=== PATIENT | male | born 1965 | race Caucasian/White ===

== ENCOUNTER 2024-01-22 21:11 | Emergency (ER) | payer SELFPAY ==
[2024-01-22] VITALS (15 sets, daily range): BP systolic 106–152; BP diastolic 73–85; PULSE 98–117; TEMP 36.4; O2SAT 89–97; BMI 35.0
--- NOTE | 2024-01-22 21:34 | ECG_ITS ---
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
--- NOTE | 2024-01-22 21:40 | ED.GENADUL1 ---
HPI HPI - General Adult General Chief complaint: Recheck/Abnormal Lab/Rx Stated complaint: POSS HIGH SUGAR-DIABETIC Time Seen by Provider: 01/22/24 21:19 Source: patient Mode of arrival: walk-in Limitations: no limitations History of Present Illness HPI narrative: This 58-year-old male with a history of type 2 diabetes who is on Farxiga and metformin presents for evaluation of 1 week of feeling dizzy with polyuria and polydipsia. He has some degree of blurred vision. He denies any chest pain or shortness of breath. He has not had much of an appetite. He has not had a fever or cough. He does not check his sugars. He denies any severe weight loss but states his pants do feel like they are may be fitting more loosely. He also has a history of hypertension and high cholesterol. He maintains compliance with his medications. He states that earlier in the week his tongue looked white and dry so he has been drinking a lot of water. Related Data Home Medications ?Medication ?Instructions ?Recorded ?Confirmed amlodipine 5 mg tablet 5 mg PO DAILY 01/22/24 01/22/24 dapagliflozin propanediol 10 mg 10 mg PO DAILY 01/22/24 01/22/24 tablet lisinopril 40 mg tablet 40 mg PO DAILY 01/22/24 01/22/24 metformin 1,000 mg tablet 500 mg PO BID 01/22/24 01/22/24 rosuvastatin 40 mg tablet 40 mg PO DAILY 01/22/24 01/22/24 Allergies Allergy/AdvReac Type Severity Reaction Status Date / Time No Known Drug Allergies Allergy Verified 01/22/24 21:24 Opioid HPI Opioid Management Most Recent Opioid Data: No Data to Display Review of Systems ROS Status of ROS 10 or more systems reviewed and unremarkable except as noted in history and below [facility] Medical History (Updated 01/22/24 @ 22:51 by Zofia Wiley MD) Cleft palate and cleft lip ?Q37.9 - Unspecified cleft palate with unilateral cleft lip (ICD-10) Diabetes ?E11.9 - Type 2 diabetes mellitus without complications (ICD-10) Hypertension ?I10 - Essential (primary) hypertension (ICD-10) High cholesterol ?E78.00 - Pure hypercholesterolemia, unspecified (ICD-10) Surgical History (Updated 01/22/24 @ 21:29 by Brandie Golden) H/O bone graft ?Z98.890 - Other specified postprocedural states (ICD-10) History of placement of ear tubes ?Z96.22 - Myringotomy tube(s) status (ICD-10) Social History Little interest or pleasure in doing things: not at all Feeling down, depressed, or hopeless: not at all Exam Narrative Exam Narrative: Vital signs and Nursing Notes reviewed: Patient is afebrile, he is tachycardic with a pulse of 117, blood pressure is elevated at 152/83, he is not hypoxic with pulse ox of 97% on room air General: Awake, alert, oriented, no acute distress, lying comfortably on the stretcher HEENT: Normocephalic atraumatic, mucous membranes are moist and pink, eyes are clear, normal conjunctiva, vision is grossly intact, posterior pharynx is normal in appearance. Neck: Supple, no meningeal signs, no anterior or posterior cervical lymphadenopathy Chest: Lungs are clear to auscultation with good air entry, there is no wheezing rhonchi or rales appreciated no accessory muscle use, patient is speaking in complete sentences-no chest wall tenderness to palpation CVS: Regular rate and rhythm S1-S2, tachycardic at triage at 117 no murmurs rubs or gallops, pulses are brisk and equal bilaterally ABD: Soft, nondistended, nontender, no rebound guarding or rigidity, bowel sounds are normal, no pulsatile masses appreciated Extremities: Moving all extremities, no lower extremity tenderness or swelling noted, negative Homans' sign, pulses are brisk and equal bilaterally Skin: Normal in appearance without rash,pallor, petechiae or purpura Neuro: No focal deficits Constitutional Vital Signs, click to edit/add: Last Vital Signs Temp 97.5 F L 01/22/24 21:18 Pulse 104 H 01/22/24 23:10 Resp 13 01/22/24 23:10 BP 106/73 01/22/24 22:26 Pulse Ox 93 L 01/22/24 23:10 O2 Del Method Room Air 01/22/24 21:32 Course Vital Signs Vital signs: Vital Signs Temperature 97.5 F L 01/22/24 21:18 Pulse Rate 117 H 01/22/24 21:18 Respiratory Rate 18 01/22/24 21:18 Blood Pressure 152/83 H 01/22/24 21:18 Pulse Oximetry 97 11/28/24 21:18 Oxygen Delivery Method Room Air 01/22/24 21:18 Temperature 97.5 F L 01/22/24 21:18 Pulse Rate 104 H 01/22/24 23:10 Respiratory Rate 13 01/22/24 23:10 Blood Pressure 106/73 01/22/24 22:26 Pulse Oximetry 93 L 01/22/24 23:10 Oxygen Delivery Method Room Air 01/22/24 21:32 Medical Decision Making MDM Narrative Medical decision making narrative: This 58-year-old male with a history of type 2 diabetes who is on Farxiga and metformin but admits to noncompliance with these medications due to the GI side effects presents for evaluation of 1 week of generally not feeling well with polyuria polydipsia and some blurred vision. His friend convinced him to come to the emergency department. He denies any chest pain or shortness of breath he has not had any fever. His mental status is normal. He states he is compliant with his cholesterol and blood pressure medications because they do not cause him the GI side effects. Upon arrival and Accu-Chek was greater than 600. An IV was placed and he was medicated with IV fluids and given 10 units of IV insulin. Routine labs are reviewed. He has a normal white count and hemoglobin. Troponin is normal. EKG done upon arrival was a sinus tachycardia at 114 bpm. Electrolytes are normal with an elevated creatinine at 2.05. Lactic acid and acetone are normal. His venous pH and CO2 are normal indicating he does not have DKA. Repeat Accu-Chek was 588 and he was given additional 10 units of insulin and additional liter of IV fluid. I explained to the patient that he will need to follow-up closely with his family physician and may require insulin at this point. I suggested that he use his medication that is available to him until he is able to see his family physician and the appropriate medications for his marked hyperglycemia can be instituted. I also discussed the elevated creatinine with him which may improve after the IV fluids and will hopefully improve after better glucose control. Lab Data Lab results reviewed: Yes I reviewed the patient's lab results Labs: Lab Results 01/22/24 01/22/24 01/22/24 Range/Units 21:30 22:25 23:30 WBC 10.5 (4.0-11.0) 10^3/uL RBC 5.42 (4.70-6.10) 10^6/uL Hgb 15.3 (14.0-18.0) g/dL Hct 47.0 (42.0-54.0) % MCV 86.7 (80.0-94.0) fL MCH 28.2 (25.9-34.0) pg MCHC 32.6 (29.9-35.2) g/dL RDW 13.1 (11.0-15.0) % Plt Count 351 (150-450) 10^3/uL MPV 10.9 (9.5-13.5) fL Neut % (Auto) 60.3 (43.0-75.0) % Lymph % (Auto) 28.5 (20.5-60.0) % [place]ie % (Auto) 8.6 (1.7-12.0) % Eos % (Auto) 1.8 (0.9-7.0) % Baso % (Auto) 0.6 (0.2-2.0) % Neut # (Auto) 6.3 (1.4-6.5) 10^3/uL Lymph # (Auto) 3.0 (1.2-3.8) 10^3/uL [place]ie # (Auto) 0.9 H (0.3-0.8) 10^3/uL Eos # (Auto) 0.2 (0.0-0.7) 10^3/uL Baso # (Auto) 0.1 (0.0-0.1) 10^3/uL Abs Immat Gran (auto) 0.02 (0.00-0.03) 10^3/uL Imm/Tot Granulo (auto) 0.2 (0.0-0.5) % VBG pH 7.341 (7.330-7.430) VBG pCO2 55.0 H (40.0-52.0) mmHg Sodium 131 L (136-145) mmol/L Potassium 4.3 (3.5-5.1) mmol/L Chloride 91 L (98-107) mmol/L Carbon Dioxide 28.2 (21.0-32.0) mmol/L Anion Gap 16.1 BUN 36.0 H (7.0-18.0) mg/dL Creatinine 2.05 H (0.70-1.30) mg/dL Est GFR ( Amer) 41 L (>=60 mL/min/1.73m^2) Est GFR (Non-Af Amer) 34 L (>=60 mL/min/1.73m^2) BUN/Creatinine Ratio 17.6 Glucose 788 H* (74-106) mg/dL Lactate 1.6 (0.4-2.0) mmol/L Calcium 10.2 H (8.5-10.1) mg/dL Total Bilirubin 0.4 (0.2-1.0) mg/dL AST 21 (15-37) U/L ALT 40 (16-63) U/L Alkaline Phosphatase 130 H (46-116) U/L Troponin I High Sens 8.2 (4.0-76.1) pg/mL Total Protein 8.2 (6.4-8.2) g/dL Albumin 3.7 (3.4-5.0) g/dL Globulin 4.5 g/dL Albumin/Globulin Ratio 0.8 Acetone, Qual Negative (NEGATIVE) POC Glucose 528 H* 413 H (74-106) mg/dL ECG Data Attestation: I personally reviewed and interpreted this ECG as follows: (Sinus tachycardia at 114 bpm, normal axis, nonspecific ST changes, no acute ST segment elevation or T wave inversion) Discharge Plan Discharge Chief Complaint: Recheck/Abnormal Lab/Rx Clinical Impression: Hyperglycemia due to type 2 diabetes mellitus, Acute kidney injury Patient Disposition: Home, Self-Care Time of Disposition Decision: 23:35 Condition: Good Prescriptions / Home Meds: No Action amlodipine 5 mg tablet 5 mg PO DAILY dapagliflozin propanediol 10 mg tablet 10 mg PO DAILY lisinopril 40 mg tablet 40 mg PO DAILY metformin 1,000 mg tablet 500 mg PO BID rosuvastatin 40 mg tablet 40 mg PO DAILY Print Language: Maltese Instructions: What is Insulin (ED), Diabetic Hyperglycemia (ED), Type 2 Diabetes Management for Adults (ED) Referrals: DAVID KEANE [Primary Care Provider] - 1 week
[2024-01-22 21:42] LABS: Basophils Absolute Auto 0.1 10^3/uL (0.0-0.1); Basophils Percent Auto 0.6 % (0.2-2.0); Eosinophils Absolute Auto 0.2 10^3/uL (0.0-0.7); Eosinophils Percent Auto 1.8 % (0.9-7.0); Hemoglobin 15.3 g/dL (14.0-18.0); Immature Granulocytes Abs Auto 0.02 10^3/uL (0.00-0.03); Immature Granulocytes Pct Auto 0.2 % (0.0-0.5); Lymphocytes Percent Auto 28.5 % (20.5-60.0); Mean Corpuscular HGB Conc 32.6 g/dL (29.9-35.2); Mean Corpuscular Hemoglobin 28.2 pg (25.9-34.0); Mean Corpuscular Volume 86.7 fL (80.0-94.0); Mean Platelet Volume 10.9 fL (9.5-13.5); Monocytes Absolute Auto 0.9 10^3/uL (0.3-0.8); Monocytes Percent Auto 8.6 % (1.7-12.0); Neutrophils Absolute Auto 6.3 10^3/uL (1.4-6.5); Neutrophils Percent Auto 60.3 % (43.0-75.0); Platelet Count 351 10^3/uL (150-450); Red Blood Count 5.42 10^6/uL (4.70-6.10); Red Cell Distribution Width 13.1 % (11.0-15.0); White Blood Count 10.5 10^3/uL (4.0-11.0); pH VBG 7.341 (7.330-7.430)
[2024-01-22] MEDS: 0.9 % SODIUM CHLORIDE 1,000 ML 1000 ML IV ×2 (21:47→23:01)
[2024-01-22] MEDS: INSULIN REGULAR, HUMAN (100 UNIT/ML) 10 ML MDV 10 UNIT IV ×2 (21:48→22:50)
[2024-01-22 21:55] LABS: Acetone NEGATIVE (NEGATIVE)
[2024-01-22 22:02] LABS: Lactate/Lactic Acid 1.6 mmol/L (0.4-2.0)
[2024-01-22 22:05] LABS: Alanine Aminotransferase 40 U/L (16-63); Albumin Globulin Ratio 0.8; Albumin Level 3.7 g/dL (3.4-5.0); Alkaline Phosphatase 130 U/L (46-116); Anion Gap 16.1; Aspartate Amino Transferase 21 U/L (15-37); BUN Creatinine Ratio 17.6; Bilirubin Total 0.4 mg/dL (0.2-1.0); Calcium 10.2 mg/dL (8.5-10.1); Carbon Dioxide 28.2 mmol/L (21.0-32.0); Chloride 91 mmol/L (98-107); Estimated GFR (African America 41 (>=60 mL/min/1.73m^2); Estimated GFR (Non-African Ame 34 (>=60 mL/min/1.73m^2); Globulin 4.5 g/dL; Potassium 4.3 mmol/L (3.5-5.1); Sodium 131 mmol/L (136-145); Total Protein 8.2 g/dL (6.4-8.2); Troponin I High Sensitivity 8.2 pg/mL (4.0-76.1)
[2024-01-22 22:08] LABS: Glucose 788 mg/dL (74-106)
[2024-01-22 22:27] LABS: Glucometer 528 mg/dL (74-106)
[2024-01-22 23:33] LABS: Glucometer 413 mg/dL (74-106)
== END 2024-01-22 23:43 | disposition home or self-care (01) ==
PROVIDERS: Emergency Provider Emergency Medicine; PCP Family Medicine
DX: E11.65 Type 2 diabetes mellitus with hyperglycemia (principal); I10 Essential (primary) hypertension; E78.00 Pure hypercholesterolemia, unspecified; Z79.84 Long term (current) use of oral hypoglycemic drugs; N17.9 Acute kidney failure, unspecified; Z91.128 Patient's intentional underdosing of medication regimen for other reason
CPT/HCPCS: 36415; 80053; 82009; 82800; 83605; 84484; 85025; 93005; 96360; 99284; J1817